=== PATIENT | female | born 1945 | race Caucasian/White ===

== ENCOUNTER → 2018-05-18 | Outpatient (CLI) | payer MEDICARE, OTHER ==
--- NOTE | 2018-05-18 16:38 | CARDNUC ---
[place] [address] CARDIAC NUCLEAR IMAGING REPORT Name: ADRIA SANCHEZ Room: [facility]#: [id number] Admission: 05/18/18 Attend Phys: Reyes Johnson MD Discharge: Date of : 41 Date of Service: 05/18/18 1637 Report #: [id number] THIS REPORT FOR: //name// APPROVED REPORT Imaging Protocol: Rest Tc-99m/Stress Tc-99m 1 day Study performed: 05/18/2018 11:15:00 Stress Nurse: ZECHARIAH Lopez Tech:JULIA Guevara Ht: 5 ft 0 in Wt: 151 lbs BSA: 1.66 m2 HR: 77 bpm BP: 168/101 mmHg BMI: 29.48 Medical History Medical History: No history of CAD Resting Data Rest SPECT myocardial perfusion imaging was performed in supine position 30 minutes following the intravenous injection of 11.4 mCi of Tc-99m Sestamibi. Time of rest injection: 1230 Date: 05/18/2018 Time of rest imagin The images were gated to evaluate regional wall motion and calculate left ventricular ejection fraction. Administration Route: IV Administration Site: Left Arm Pharmacologic Stress Pharmacologic stress test was performed by injecting Regadenoson 0.4 mg IV push over 10-15 seconds immediately followed by the intravenous injection of 36.0 mCi of Tc-99m Sestamibi. Time of stress injection: 1420 Time of stress imagin Administration Route: IV Administration Site: Left Arm Gated Stress SPECT was performed 40 minutes after stress injection. The images were gated to evaluate regional wall motion and calculate left ventricular ejection fraction. Prone imaging was performed. [place] [address] CARDIAC NUCLEAR IMAGING REPORT Name: LAURAADRIA Alexsandra Room: [facility]#: [id number] Admission: 05/18/18 Attend Phys: Reyes Johnson MD Discharge: Date of : 41 Date of Service: 05/18/18 1637 Report #: [id number] HR Max Heart Rate (APMHR): 146 bpm Target HR (85% APMHR): 124 bpm BP ECG Resting ECG: Sinus Rhythm Stress ECG: Sinus Rhythm ST Change: None Arrhythmia: None Recovery ECG: Sinus Rhythm Recovery ST Change: None Recovery Arrhythmia: None Clinical The patient tolerated Lexiscan infusion without significant symptoms. Stress ECG Conclusion The baseline 12-lead EKG show sinus rhythm with no significant ST or T wave abnormality. EKGs obtained during and post Lexiscan infusion show sinus rhythm with no significant ST or T wave changes when. There were no significant stress-induced arrhythmias. Study Quality Study: Good Artifact: No artifact Study Data At rest, the left ventricular ejection fraction was 75%.. Post stress, the left ventricular ejection was 76%.. TID = 0.76. Perfusion Normal left ventricular perfusion. Wall Motion Normal left ventricular wall motion. Nuclear Conclusion ECG Findings: negative for ischemia Clinical Findings: negative for ischemia Nuclear Findings: negative for ischemia Exercise Capacity: not assessed Left Ventricular Function: normal Risk Study: low Myocardial perfusion images show no defect [place] [address] CARDIAC NUCLEAR IMAGING REPORT Name: ADRIA SANCHEZ Room: [facility]#: [id number] Admission: 05/18/18 Attend Phys: Reyes Johnson MD Discharge: Date of : 41 Date of Service: 05/18/181636 Report #: [id number] ischemia. Left ventricular systolic function appears normal. This is a low risk study. <Conclusion> The baseline 12-lead EKG show sinus rhythm with no significant ST or T wave abnormality. EKGs obtained during and post Lexiscan infusion show sinus rhythm with no significant ST or T wave changes when. There were no significant stress-induced arrhythmias. <ELECTRONICALLY SIGNED> By: Pedrito Payton MD, [facility] 05/18/181636 36 1637 Pedrito Payton MD, FACC /INF
== END ==
LOC: M.NUC 04-25 14:50
DX: R07.82 Intercostal pain (principal); R07.9 Chest pain, unspecified